=== PATIENT | male | born 1970 | race Caucasian/White ===

== ENCOUNTER 2018-11-26 11:56 | Emergency (ER) | payer OTHER, MEDICAID ==
[~2018-11-26] VITALS: Ht 182.9 cm; Wt 90.7 kg
[2018-11-26 12:05] VITALS: BP_SYST 162
== END 2018-11-26 12:28 | disposition home or self-care (01) ==
LOC: SED 11:56
DX: M54.5 Low back pain (principal); R03.0 Elevated blood-pressure reading, without diagnosis of hypertension
CPT/HCPCS: 99281